=== PATIENT | male | born 1985 | race Caucasian/White ===

== ENCOUNTER → 2020-01-07 11:01 | Outpatient (CLI) | payer OTHER, SELFPAY ==
[2020-01-08 23:29] LABS: COVID19 Sendout Not Detected (Not Detect)
== END ==
PROVIDERS: Visit Provider Nurse Practitioner
DX: Z11.59 Encounter for screening for other viral diseases (principal)
CPT/HCPCS: 87635

== ENCOUNTER 2020-01-10 09:44 | Day surgery (SDC) | payer OTHER, SELFPAY ==
[2020-01-10] VITALS (7 sets, daily range): BP systolic 115–149; BP diastolic 75–97; PULSE 70–88; RESP 10–20; TEMP 36.6–37.1; O2SAT 94–98; BMI 27.8
[2020-01-10] MEDS: LACTATED RINGERS 1,000 ML 200 ML IV (10:24)
--- NOTE | 2020-01-10 10:29 | PM.PREOP ---
Pre-operative Note COVID-19 COVID-19 status: Negative Result date/Date tested (Pos, Neg/Pending): 01/07/20 Interval Note History & Physical reviewed/Exam performed by Physician: Yes Changes to H&P: No ASA Class (for procedural sedation): I
[2020-01-10] MEDS: LIDOCAINE JELLY 2% 5 ML 1 APPLIC TOP (10:40)
[2020-01-10] MEDS: MIDAZOLAM 5 MG/5 ML VIAL IV (11:03)
[2020-01-10] MEDS: fentaNYL 250 MCG/5 ML INJ IV (11:03)
--- NOTE | 2020-01-10 11:28 | P.OP.ENDO_ITS ---
Operative Date/Time/Diagnoses Date of procedure: 01/10/20 Time of procedure: 11:28 Pre-op diagnosis: history of rectal bleeding. History of possible colitis. History of prolapse of hemorrhoids verses mucosa. Post-op diagnosis: same (No colitis found. Two columns of hemorrhoids banded.(right anterior and left lateral positions)) Procedure & Clinicians Study performed: Colonoscopy with a not scope be in hemorrhoidal banding 2 columns of hemorrhoids Same procedure as scheduled: Yes Indications: Patient with a history of prolapsing tissue from his anus. History of bleeding. Questionable history of colitis/proctitis. Surgeon: Nikolay Winston Procedure Notes SCOAP/Timeout: Performed Procedure in detail: The patient was placed in the left lateral decubitus position and underwent IV sedation directed by the surgeon consisting of fentanyl and Versed. The patient required a rather large dose of both in order to complete the exam. Digital exam was unremarkable at this time. There are no external hemorrhoids. The prostate is not enlarged.. The scope was inserted and advanced through the rectum into the sigmoid, descending, transverse, and ascending colon. I did not see any evidence of proctitis or colitis on the way in. His colon is unusually tortuous however and it took quite a bit of time to reach his cecum going in an out. We had to reposition the patient inserted stiffener in apply pressure. Ultimately, The cecum was reached identified by the ileocecal valve and the appendiceal opening. The ileocecal valve was successfully cannulated. The terminal ileum was normal in appearance. The sc ope was gradually brought out. No Polyps were found. The scope ultimately was retroflexed in the rectum. The appearance was actually fairly normal except for 1 area that probably represented the tissue that is prolapsing.. The scope was removed and the patient tolerated the procedure well. The prep was excellent. Anoscope was inserted and a circumferential exam performed. Two areas of poten tial banding were identified. One was in the right anterior lateral and 1 is in the left lateral position. Both were successfully banded. There was no significant bleeding. Patient tolerated the procedure well. Scope withdrawal time: 6 minutes Sedation minutes: 45 Findings: internal hemorrhoids and other findings (Tortuous colon) Specimen(s): none sent Complications: none Post-procedure Recommendations: Other recommendation (Colonoscopy at age 50. ) Follow up: weeks (Two) Disposition: PACU
== END 2020-01-10 12:30 | disposition home or self-care (01) ==
PROVIDERS: Referring Provider Specialist; Visit Provider Specialist
PROC: 0DJD8ZZ Inspection of Lower Intestinal Tract, Via Natural or Artificial Opening Endoscopic (ICD-10-PCS; CPT 45378; principal; 2020-01-10 10:45)
DX: K62.5 Hemorrhage of anus and rectum (principal); Z87.19 Personal history of other diseases of the digestive system; K64.2 Third degree hemorrhoids
CPT/HCPCS: 45378; 46221; 99152; 99153; J2250; J3010

== ENCOUNTER → 2020-06-23 10:50 | Outpatient (CLI) | payer OTHER, SELFPAY ==
[2020-06-23 14:18] LABS: COVID19 -Nasal RAPID Negative (Negative)
== END ==
PROVIDERS: Visit Provider Nurse Practitioner
DX: Z01.812 Encounter for preprocedural laboratory examination (principal); Z20.822 Contact with and (suspected) exposure to COVID-19
CPT/HCPCS: 87635

== ENCOUNTER 2020-06-25 06:33 | Observation (INO) | payer OTHER, SELFPAY ==
[2020-06-25] VITALS (31 sets, daily range): BP systolic 112–154; BP diastolic 70–106; PULSE 68–103; RESP 12–24; TEMP 36.3–37.5; O2SAT 77–100; BMI 29.2
--- NOTE | 2020-06-25 | PATH_ITS ---
[facility] Accession Number: [id number] . 01 Material submitted: . PART A: hemorrhoids - RIGHT POSTERIOR LATERAL HEMORRHOID PART B: hemorrhoids - RIGHT ANTERIOR LATERAL HEMORROID . 02 Diagnosis: A. Right Posterior Lateral Hemorrhoid, Biopsy: Consistent with hemorrhoidal tissue. Negative for dysplasia and malignancy. . B. Right Anterior Lateral Hemorrhoid, Biopsy: Consistent with hemorrhoidal tissue. Negative for dysplasia and malignancy. MRV 06/29/2020 1404 Local . 02 Electronically signed: . Kristin Lantigua MD, Pathologist NPI- [id number] . 01 Gross description: . Part A: RIGHT POSTERIOR LATERAL HEMORRHOID: Received in formalin is 1 fragment of whalen soft tissue measuring 2.0 x 1.4 x 0.8 cm. Tissue is inked. Specimen is sectioned and submitted in statement services representative sections in 1 cassette. Part B: RIGHT ANTERIOR LATERAL HEMORROID: Received in formalin is 1 fragment of whalen soft tissue measuring 0.7 x 0.7 x 0.6 cm. Tissue is inked. Specimen is sectioned and submitted in its entirety in 1 cassette. /UGO 06/26/2020 1905 Local . 02 Pathologist provided ICD-10: K64.9 . 02 CPT . 524856, [id number] Performed at: 01 [facility] [address], [place], [place] [id number] MD Tyson Gustafson MD Phone: [phone] Performed at: 02 [facility] [address] [place], [place] [id number] MD Kristin Lantigua MD Phone: [phone]
--- NOTE | 2020-06-25 | DI.RAD.S_ITS ---
PROCEDURE: XR CHEST 1V INDICATIONS: Possible flash pulmonary edema TECHNIQUE: One view of the chest was acquired. COMPARISON: None. FINDINGS: Surgical changes and devices: None. Lungs and pleura: Bilateral perihilar infiltrates. No pleural effusions or pneumothorax. Mediastinum: Mediastinal contours appear normal. Heart size is normal. Bones and chest wall: No suspicious bony lesions. Overlying soft tissues appear unremarkable. IMPRESSION: Bilateral perihilar infiltrates compatible with non cardiogenic pulmonary edema or bilateral perihilar pneumonia. Dictated by: Kelsey Comer M.D. on 06/25/2020 at 9:56 Approved by: Kelsey Comer M.D. on 06/25/2020 at 9:58
[2020-06-25] MEDS: LACTATED RINGERS 1,000 ML 100 ML IV (07:38)
--- NOTE | 2020-06-25 07:44 | PM.PREOP ---
Pre-operative Note COVID-19 COVID-19 status: Negative Result date/Date tested (Pos, Neg/Pending): 06/23/20 Interval Note History & Physical reviewed/Exam performed by Physician: Yes Changes to H&P: No
--- NOTE | 2020-06-25 07:44 | PM.HP.1 ---
History of Present Illness History of Present Illness Date Patient Seen: 06/25/20 Time Patient Seen: 07:38 Chief complaint: HEMORROIDECTOMY Narrative: Patient here for a hemorrhoidectomy. Patient History Medical History Heart murmur Surgical History History of placement of ear tubes Family & Social History Family History Mother Hypertension Father Diabetes mellitus Grandmother Breast cancer Social History: household members spouse,children Tobacco & Substance use: Smoking Status Never smoker alcohol intake never Substance Use Type does not use Meds Home Medications and Allergies Home Medications Medication Instructions Recorded Confirmed Type fexofenadine 180 mg tablet 180 mg PO DAILY 01/04/20 06/06/20 History lactobacillus combination no.9 4 PO 01/04/20 06/06/20 History billion cell capsule cholecalciferol (vitamin D3) 50 mcg PO DAILY 06/25/20 06/25/20 History [Vitamin D3] fluticasone propionate 4 spray INTRANASAL DAILY 06/25/20 06/25/20 History melatonin 3 mg PO BEDTIME PRN 06/25/20 06/25/20 History omega 9-opy-ecy-fish oil [Fish Oil] 1,800 cap PO BID 06/25/20 06/25/20 History Allergies Allergy/AdvReac Type Severity Reaction Status Date / Time No Known Drug Allergies Allergy Verified 06/25/20 07:15 Review of Systems Review of Systems ROS: Yes All systems reviewed with the patient and are negative except as otherwise documented Exam Vital Signs (past 8 hours): - 06/25/20 07:27 Temperature 97.6 F Pulse Rate 81 Respiratory Rate 15 Blood Pressure 140/88 Pulse Oximetry 100 Oxygen Delivery Method Room Air Narrative Exam Narrative: Pleasant cooperative patient no apparent distress. Lungs are clear to auscultation. No rales or rhonchi. Heart regular rate and rhythm no murmur gallop. Abdomen is soft nontender without mass. No obvious hernias. Patient is alert and oriented x3. Assessment & Plan Assessment & Plan narrative: Patient here for hemorrhoidectomy. He has prolapse and continue problems with his hemorrhoids despite banding. I have discussed the procedure with him. Risks of bleeding, life-threatening infection, recurrence discussed. He appears to understand wishes to proceed.
--- NOTE | 2020-06-25 08:10 | SUR.OPER ---
Prone on padded OR bed, head in foam head support, gel chest rolls, gel pad under knees, pillow under lower legs, toes free of pressure, arms secured on padded arm boards at <90 degrees abduction. Safety belt at thigh.
[2020-06-25] MEDS: DIBUCAINE 1% OINT 28 GM 1 APPLIC TOP (08:18)
[2020-06-25] MEDS: LIDOCAINE 1% W/EPI 20 ML INJ (08:18)
--- NOTE | 2020-06-25 09:05 | SUR.PHASEI ---
Pt 02 sats dropping. Placed on nonrebreather and jaw thrust to open airway. JORGE Oropeza and JORGE Moe assisting.
--- NOTE | 2020-06-25 09:07 | SUR.PHASEI ---
Dr Richard to bedside. Oral airway placed to maintain airway. Non rebreather in place. Oxygen sats increasing. Suction ready.
--- NOTE | 2020-06-25 09:20 | SUR.PHASEI ---
Dr Winston and Dr Richard at bedside. Pt being suctioned by physician. At bedside and assisting. Nonrebreather remains. Sats improving. Chest xray order in.
--- NOTE | 2020-06-25 09:25 | SUR.PHASEI ---
Pt condition continuing to improve. Remains on nonrebreather. Continues to have bloody frothy cough. Airway intact. Answering questions appropriately. Vital signs remain stable. Able to suction self with yankauer. Dressing and packing dry and intact. Report called and given to ICU nurse. Pt transferred with monitor, two RNs and oxygen. Handoff of care to [employer] [facility] [employer] Tino. PAMELAS upon admission to floor.
--- NOTE | 2020-06-25 10:08 | PM.OP.1 ---
Operative Date/Time/Diagnoses Date of procedure: 06/25/20 Time of procedure: 09:01 Pre-op diagnosis: Internal hemorrhoids with bleeding and prolapse Post-op diagnosis: same (Acute negative pressure pulmonary edema) Procedure & Clinicians Procedure: Hemorrhoidectomy 3 columns. Same procedure as scheduled: Yes Indications: Symptomatic hemorrhoids Surgeon: Nikolay Winston Click Yes if Unassisted: Yes Anesthesia Type: General Operative Notes Findings: Three columns of hemorrhoids. Two largest were excise. The 3rd was ligated. Closure Type: not applicable Specimen(s): other (Hemorrhoids) Prosthetic devices, grafts, tissues, transplants, or devices: None Estimated Blood Loss (mL): 100 Procedure in detail: Patient was placed yasemin-knife prone on the operating room table after undergoing general anesthesia. Was prepped and draped in the usual fashion. Digital exam was unremarkable. There was no significant external hemorrhoidal disease. A bivalve anoscope was inserted and circumferential exam performed. The largest hemorrhoidal column was actually in the right posterior lateral position. There was a smaller when the right anterior lateral position and a very small hemorrhoid in the left lateral position. Beginning in the right posterior lateral and suture was placed at the head of the hemorrhoidal column. This was a 2 0 Vicryl [id number] suture. The hemorrhoidal vessels were lifted off of any sphincter and musculature and the hemorrhoid excised. There was a bleeding artery which was ligated with a 3-0 Vicryl suture ligature. The defect created by excising the hemorrhoids and overlying mucosa was closed with a running 2 0 Vicryl that had been used to tie the head of the column. This was brought out to the anal verge. An additional suture at the head was placed of 3-0 Vicryl to control some minor oozing. In an identical fashion the right anterior hemorrhoid was approached and removed. The left lateral lesion was quite small and I decided simply to ligate it at the head of the hemorrhoid. There really was not a large enough amount of tissue to justify excision. The area was irrigated and suctioned free of fluid. Meticulous hemostasis was achieved. Nupercainal ointment on the Gelfoam was inserted into the anal canal after injecting local anesthetic (10 cc of 1% lidocaine with epinephrine) in the perianal tissues. Dressing was applied. The patient was placed back on his bed. He was extubated and taken the recovery room where he began to cough up bloody material. He became somewhat hypoxic acutely. Oral airway was inserted and the was suctioned as he coughed. At his breathing was adequate to maintain his sats in the low 90% . Ultimately as he woke up he was able to control his airway and his sats came up to 100% on supplemental oxygen. Chest x-ray was performed. It was consistent with central pulmonary edema of a noncardiac origin. Patient is being admitted for observation in the ICU. Post-operative Condition: stable Disposition: PACU (To be transferred to the ICU)
[2020-06-25] MEDS: ACETAMINOPHEN 325 MG TABLET 650 MG PO ×2 (10:37→20:54)
[2020-06-25] MEDS: GABAPENTIN 300 MG CAPSULE PO ×2 (10:38→20:54)
[2020-06-25] MEDS: OXYCODONE IR 5 MG TABLET 10 MG PO ×2 (10:38→20:55)
[2020-06-25] MEDS: LACTATED RINGERS 1,000 ML 125 ML IV ×2 (10:41→18:15)
[2020-06-25] MEDS: BENZOCAINE/MENTHOL 1 LOZ PKT 1 EACH PO ×3 (11:59→20:55)
[2020-06-25] MEDS: guaiFENesin Solution 100 MG/5 ML UDC PO ×2 (11:59→20:55)
[2020-06-25] MEDS: MORPHINE 4 MG/ML INJ IV ×2 (12:24→18:14)
--- NOTE | 2020-06-25 14:41 | PC.ADMIT ---
[facility] Admission Note: Rec'd pt from PACU to rm 230 via gurney on NRB. Pt was is AO x4 and able to scoot from gurney to bed. Frequently removing NRB to perform oral suctioning independently with small amount of frothy red secretions. SPO2 ranging from 89-91% due to frequent O2 removal for suctioning. Transitioned to high flow NC with humidification titrated to 10L for SPO2 95-97%. Pt reports mild dyspnea and is tachypneic up to 26 with exertion. SR/ST 90s-110s on bedside monitor. Reports rectal pain 5/10-7/10 exacerbated by coughing. PO RX given with minimal, short-lived relief. Requested cough syrup and lozenge from Dr. Winston. Pt reported increased pain due to coughing and was then administered PRN morphine. Provided waffle cushion and assisted pt to more comfortable position. Post med administration, pt reported good relief and rated pain 2/10. Able to titrate O2 down to 4L high flow NC. Placed call light in easy reach and oriented to room/routine. Pt verbalizes understanding. The patient,Tushar Stroud,34 y/o, was given written information regarding hospital policies, unit procedures and contact persons. Patient's smoking status: Never smoker. Vital Signs - 8 hr 06/25/20 07:27 06/25/20 09:07 06/25/20 09:13 Temperature 97.6 F Pulse Rate 81 77 77 Respiratory Rate 15 14 23 Blood Pressure 140/88 112/77 140/75 Pulse Oximetry 100 77 L 88 L 06/25/20 09:18 06/25/20 09:21 06/25/20 09:25 Temperature Pulse Rate 103 H 100 H 91 H Respiratory Rate 15 12 15 Blood Pressure 150/106 H 127/89 135/93 H Pulse Oximetry 87 L 97 99 06/25/20 09:34 06/25/20 10:12 06/25/20 10:35 Temperature 97.4 F L Pulse Rate 97 H 96 H Respiratory Rate 15 22 Blood Pressure 135/75 154/79 H Pulse Oximetry 98 94 95 06/25/20 10:37 06/25/20 11:14 06/25/20 12:00 Temperature 97.4 F L Pulse Rate 97 H Respiratory Rate 23 Blood Pressure 140/84 Pulse Oximetry 98 97 98 06/25/20 12:30 06/25/20 13:00 06/25/20 14:00 Temperature 98 F Pulse Rate 98 H 87 Respiratory Rate 24 19 Blood Pressure 120/72 126/70 Pulse Oximetry 98 97 95
[2020-06-25] MEDS: SENNOSIDES 8.6 MG TABLET 17.2 MG PO (16:20)
[2020-06-25] MEDS: DOCUSATE 100 MG CAPSULE PO (16:20)
--- NOTE | 2020-06-25 19:36 | PC.NURSE ---
1930- Patient saturation 97% on 2l. 02 turned off to trial room air. Lungs are clear anteriorly and posteriorly. Will monitor closely.
[2020-06-26] VITALS (11 sets, daily range): BP systolic 124–135; BP diastolic 69–87; PULSE 83–89; RESP 16–18; TEMP 36.7–37.6; O2SAT 90–96
[2020-06-26] MEDS: OXYCODONE IR 5 MG TABLET 10 MG PO ×3 (03:03→10:03)
[2020-06-26] MEDS: BENZOCAINE/MENTHOL 1 LOZ PKT 1 EACH PO (03:03)
[2020-06-26] MEDS: guaiFENesin Solution 100 MG/5 ML UDC PO (03:03)
[2020-06-26] MEDS: GABAPENTIN 300 MG CAPSULE PO (08:36)
[2020-06-26] MEDS: SENNOSIDES 8.6 MG TABLET 17.2 MG PO (08:36)
--- NOTE | 2020-06-26 10:21 | CM.DANOTE ---
DCP/Assessment: Reviewed chart. Patient is a 34yr old male admitted to [facility] for hemorroidectomy performed on 06-25-[address] Winston. No PCP listed. Primary payor is 1)[employer]. Met with patient explained CM/SW role. Patient alert and oriented male whom reports that he is I with all ADL's. Patient with orders to d/c home today. Patient has no concerns about discharging today. Patient reports that his spouse/Rosemary will provide transport. P: Home today. TERRELL Frazier Discharge Planning/Care Management Advanced directive, confirm from FAMILY Start: 06/25/20 12:19 Freq: Q24H Status: Discharge Protocol: Document 06/25/20 12:19 JLN (Rec: 06/25/20 13:14 JLN [id number]) Advance Directive, confirm on record Time 13:14 Person contacted (states will bring from home) Copy received No CM Discharge Assessment Start: 06/26/20 10:18 Freq: Status: Active Protocol: Document 06/26/20 10:18 KJS (Rec: 06/26/20 10:20 KJS [id number]) Discharge Planning Assessment Assigned Histology Aide TERRELL Frazier Contact Information Rosemary Stroud (spouse) ph# [phone] Advance Directives? Yes History Provided By Patient,Medical Record Has Patient been admitted in last 30 No days? Prior Living Arrangements House Household Members spouse,children Type of transporation used prior to Drives own vehicle admit Independent with ADL's Yes Is patient alert and oriented? Yes Caregiver for Another No Barriers to Discharge No Discharge Plan Home Transportation Arrangement Family to provide transport. Referrals Initiated None needed Whiteboard Updated in Patient Room with Yes name and ext. # of Histology Aide Review Status In Process Next Review Type Continued Stay Review
== END 2020-06-26 01:03 | disposition home or self-care (01) ==
LOC: ICU 09:28
PROVIDERS: Admitting Provider Specialist; Referring Provider Specialist; Visit Provider Specialist
PROC: (CPT 46260; principal; 2020-06-25 07:45)
DX: K64.8 Other hemorrhoids (principal); R09.02 Hypoxemia; R04.2 Hemoptysis
CPT/HCPCS: 46260; 71045; 87797; 94762; G0378; J1100; J2250; J2270; J2405; J2704; J3010